=== PATIENT | male | born 1995 | race African-American/Black ===

== ENCOUNTER 2017-05-13 14:28 | Emergency (ER) | payer SELFPAY ==
[2017-05-13] MEDS ORDERED: KETOROLAC TROMETHAMINE 30 MG/1ML VIAL ONE (14:34)
--- NOTE | 2017-05-13 14:35 | ED Physician Documentation ---
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 Denies any precipitating factor noted. Denies any STD exposure and urethral dischage. Pain makes him nauseated but has not vomited. Patient states that his urine has been dark in color over the last 2 weeks. Has not noticed any blood in the urine. Patient has not had any dysuria, urinary frequency or urgency. Has had some trouble in intiating his urinary stream at times. No history of kidney stones. No history of testicular torsion.) - ROS CONST: no problems. denies: fever, chills - PAST HX Past History: none Other History: none Surgeries/Procedures: none Allergies/Adverse Reactions: Allergies Allergy/AdvReac Type Severity Reaction Status Date / Time No Known Allergies Allergy Verified 05/13/17 15:01 Home Medications: Ambulatory Orders Medication Instructions Recorded Azithromycin [Zithromax] 1,000 mg PO QD #6 tablet 05/13/17 - SOCIAL HX Smoking History: less than 1 pack/day (1/2 ppd) Alcohol Use: occasionally Drug Use: marijuana - FAMILY HX Family History: No - VITAL SIGNS Vital Signs: Vital Signs Temp Pulse Resp BP Pulse Ox 144/70 10/02/13 11:04 - REVIEWED ASSESSMENTS Nursing Assessment Reviewed: Yes Vitals Reviewed: Yes Progress - Progress Progress: 15:28 Patient states that he is still having some pain in the right testicle but better. Groin pain almost gone. 16:27 Patient had resurgence of pain, CT Scan of abd pelvic done. Normal. awaiting patient to give another UA. 17:18 Second shot has help, still is not able to void again. Urine got sent to [facility] before UA was done. 18:24 Patient able to void, UA was normal. Pain is much better but still present. Possible orchitis or testicular appendix. Will given antibiotics. ED Results Lab/Radiology - Radiology Radiology Impressions: Report Submission Date: May 13, 2017 4:20:00 PM CDT Patient Study Name: JAE JOHNSON Date: May 13, 2017 3:47:02 PM CDT Modality Type: CT\SR Gender: M Description: CT ABD & PELVIS W/O CO : 93 Institution: [facility] Physician: SANTIAGO SIMMS - ANTHONY CT of the abdomen and pelvis without contrast Clinical history: Right flank pain and right testicular pain since last night. Technique: CT of the abdomen and pelvis is performed without oral or intravenous administration of contrast. Sagittal and coronal reconstructions are performed by the technologist. Findings: Visualized lung bases are clear. Liver and spleen demonstrate normal attenuation without focal defect. The gallbladder is normally distended. There is no pancreatic or adrenal abnormality. The kidneys are normal size, shape and position. There is no evident renal or ureteral calculus and no hydronephrosis. Bladder is unremarkable. The appendix is visualized and is within normal limits. There is a trace amount of free fluid in the pelvis of uncertain etiology. Gas and stool are present in the colon. There is no small bowel or colonic wall thickening. Impression: 1. Small amount of free fluid in the pelvis of uncertain etiology. 2. No evident renal or ureteral calculus and no hydronephrosis. 3. Negative appendix. Electronically signed on May 13, 2017 4:20:00 PM CDT by: Earnest Alvarez General Adult Physical Exam - PHYSICAL EXAM GENERAL APPEARANCE: severe distress RESPIRATORY: no resp distress, chest non-tender, breath sounds normal. No: wheezes, rales, rhonchi CVS: reg rate & rhythm, heart sounds normal, equal pulses ABDOMEN: soft, no organomegaly, normal bowel sounds, no distension, tenderness BACK: CVA tenderness (R) (mild) SKIN: warm/dry, normal color EXTREMITIES: non-tender, normal range of motion NEURO: oriented X3, mood/affect nml, cognition normal Discharge Clincal Impression: Right testicular pain Prescriptions: Azithromycin [Zithromax] 1,000 mg PO QD #6 tablet Referrals: Primary Doctor,No [Primary Care Provider] - 2 Days Additional Instructions: Drink a lot of fluids. Wear some scrotal support. Take some Aleve 2 tablets twice a day. If the pain seems to be getting worse to see your primary care provider or return to the ED. Home Medications: Ambulatory Orders Azithromycin [Zithromax] 1,000 mg PO QD #6 tablet 05/13/17 Condition: Stable Disposition: 01 HOME, SELF-CARE Decision to Admit: NO Date of Decison to Admit: 05/13/17 Decision Time: 18:14 Physical Exam - Physical Exam General Appearance: WD/WN, severe distress Male Genital Exam: normal genitalia, no hernia, epididymal tenderness (right), testicular tenderness (R) Neurologic: normal mood/affect
[2017-05-13] MEDS: KETOROLAC TROMETHAMINE 30 MG/1ML VIAL IVP ONE (14:40)
[2017-05-13 14:56] LABS: EOSINOPHILS % 8.5 % (0.0-6.8); MEAN CORPUSCULAR HEMOGLOBIN 23.2 pg (28.0-34.0); MEAN CORPUSCULAR VOLUME 74.5 fl (80.0-100.0); MONOCYTES % 7.5 % (0.0-11.0); NEUTROPHILS # 1.1 # k/uL (1.4-7.7)
[2017-05-13 15:09] LABS: eGFR (African) > 60; eGFR (Non-African) > 60
[2017-05-13] MEDS: fentaNYL CITRATE/PF 100 MCG/ 2ML AMP IVP ONE ×2 (15:15→17:01)
[2017-05-13] MEDS ORDERED: 0.9 % SODIUM CHLORIDE 1,000 ML IV ONE (15:33)
[2017-05-13] MEDS: 0.9 % SODIUM CHLORIDE 500 ML IV ONE (15:40)
--- NOTE | 2017-05-13 17:40 | Diagnostic Imaging Report ---
SANTIAGO SIMMS~ [facility] [address] [facility] [address] [place], [place]. [address] ~ ~ ~ ~ Report Submission Date: May 13, 2017 4:20:00 PM CDT Patient ~ Study Name: JAE JOHNSON ~ Date: May 13, 2017 3:47:02 PM CDT ~ Modality Type: CT\SR Gender: M ~ Description: CT ABD & PELVIS W/O CO : 93 ~ Institution: [facility] Physician: SANTIAGO SIMMS ~ ~ ~ ~ CT of the abdomen and pelvis without contrast Clinical history: ~Right flank pain and right testicular pain since last night. Technique: ~CT of the abdomen and pelvis is performed without oral or intravenous administration of contrast. ~Sagittal and coronal reconstructions are performed by the technologist. Findings: ~Visualized lung bases are clear. ~Liver and spleen demonstrate normal attenuation without focal defect. ~The gallbladder is normally distended. ~There is no pancreatic or adrenal abnormality. ~The kidneys are normal size, shape and position. ~There is no evident renal or ureteral calculus and no hydronephrosis. ~Bladder is unremarkable. ~The appendix is visualized and is within normal limits. ~There is a trace amount of free fluid in the pelvis of uncertain etiology. ~Gas and stool are present in the colon. ~ There is no small bowel or colonic wall thickening. Impression: 1. ~Small amount of free fluid in the pelvis of uncertain etiology. 2. ~No evident renal or ureteral calculus and no hydronephrosis. 3. ~Negative appendix. ~ Electronically signed on May 13, 2017 4:20:00 PM CDT by: Earnest BAUTISTA
[2017-05-13] MEDS ORDERED: cefTRIAXone SODIUM 1 GM VIAL ONE (18:21)
[2017-05-13] MEDS ORDERED: 0.9 % SODIUM CHLORIDE 100 ML IV ONE (18:22)
[2017-05-13] MEDS: cefTRIAXone SODIUM 1 GM in 0.9 % SODIUM CHLORIDE 50 ML IV ONE (18:29)
[2017-05-13 19:03] VITALS: BP 128/84
[2017-05-15 07:26] LABS: APPEARANCE,URINE CLEAR (CLEAR); COLOR,URINE YELLOW (YELLOW); OCCULT BLOOD,URINE NEGATIVE (NEGATIVE); UROBILINOGEN URINE 0.2 Eu (0.2-1.0)
== END 2017-05-13 18:45 | disposition home or self-care (01) ==
LOC: ED 14:28
DX: N50.811 Right testicular pain (principal)
CPT/HCPCS: 74176; 80053; 85025; 87801; J0696; J1885; J3010; J7030; J7060; 81002; 96361; 96372; 96374; 96375; 99283; S1016

== ENCOUNTER 2017-11-14 09:50 | Emergency (ER) | payer SELFPAY ==
--- NOTE | 2017-11-14 10:20 | ED Physician Documentation ---
General Adult - HISTORIAN Historian: patient - HPI Stated Complaint: L sided pain Chief Complaint: Abdominal Pain (abd wall pain) Additional Information: 22yo male who was playing basketball 3 days ago and was hit in the left lower abd area with a shoulder. Shortly thereafter twisted his torso while playing and felt another sharp pain in the to abd wall area. He has had pain in the abd wall/LLQ area since that time. Has been able to urinate OK, no blood in urine noteed. BM have been normal with no blood. No nausea/vomiting/ diarrhea. Has tried OTC meds without improvement. Is having a lot of burning type pain with movement, harp in nature. If he gets into a certain position the pain does improve. Has some mild swelling to the abd wall area, no ecchymosis noted. Onset: days ago (3 days ago) Timing: still present, worse Severity: moderate - ROS CONST: no problems. denies: fever, chills EYES/ENT: none CVS/RESP: none GI/: abdominal pain. denies: problems urinating, vomiting, nausea, diarrhea - PAST HX Past History: none Other History: none Surgeries/Procedures: none Immunizations: referred to PCP Allergies/Adverse Reactions: Allergies Allergy/AdvReac Type Severity Reaction Status Date / Time No Known Allergies Allergy Verified 11/14/17 10:10 Home Medications: Ambulatory Orders Medication Instructions Recorded Tramadol HCl [Ultram] 50 mg PO Q4 PRN #30 tablet 11/21/17 - SOCIAL HX Smoking History: less than 1 pack/day (11/09 ppd) Alcohol Use: none Drug Use: marijuana (occasional) - FAMILY HX Family History: No - VITAL SIGNS Vital Signs: Vital Signs Temp Pulse Resp BP Pulse Ox 97.3 F L 61 19 95/80 99 11/14/17 10:05 11/14/17 10:05 11/14/17 10:05 11/14/17 10:05 11/14/17 10:05 - REVIEWED ASSESSMENTS Nursing Assessment Reviewed: Yes Vitals Reviewed: Yes General Adult Physical Exam - PHYSICAL EXAM GENERAL APPEARANCE: mild distress NECK: normal inspection, supple RESPIRATORY: no resp distress, chest non-tender, breath sounds normal. No: wheezes, rales, rhonchi CVS: reg rate & rhythm, heart sounds normal, equal pulses, no murmur ABDOMEN: soft, no organomegaly, normal bowel sounds, no abdominal bruit, no distension, tenderness (over LLQ area and lateral), guarding. No: mass, rebound BACK: normal inspection SKIN: warm/dry, normal color EXTREMITIES: non-tender NEURO: oriented X3, mood/affect nml, cognition normal Discharge Clincal Impression: Contusion Qualifiers: Encounter type: initial encounter Contusion area: abdominal wall Qualified Code (s): S30.1XXA - Contusion of abdominal wall, initial encounter Referrals: Primary Doctor,No [Primary Care Provider] - 2 Days Additional Instructions: Take some Aleve 220mg, 2 tablets twice a day as needed for pain. Use a warm/ cool compress to the abdominal wall area. Let the pain be your guide as far as starting to play basketball again. If you continue to have problems to follow- up with your local primary care provider. Condition: Stable Disposition: 01 HOME, SELF-CARE Decision to Admit: NO Date of Decison to Admit: 11/14/17 Decision Time: 13:41
[2017-11-14] MEDS ORDERED: KETOROLAC TROMETHAMINE 60 MG/2 ML VIAL IM ONE (10:28)
[2017-11-14] MEDS: KETOROLAC TROMETHAMINE 30 MG/1ML VIAL ONE (11:16)
[2017-11-14] MEDS: KETOROLAC TROMETHAMINE 30 MG/1ML VIAL IVP ONE (11:16)
[2017-11-14] MEDS ORDERED: fentaNYL CITRATE/PF 100 MCG/ 2ML AMP IVP ONE (12:20)
--- NOTE | 2017-11-14 13:29 | Diagnostic Imaging Report ---
SANTIAGO SIMMS [facility] [address] [facility] [address] [address] Report Submission Date: Nov 14, 2017 1:27:17 PM ELECTRICAL AND ELECTRONIC ASSEMBLER Patient Study Name: JAE JOHNSON Date: Nov 14, 2017 12:37:55 PM ELECTRICAL AND ELECTRONIC ASSEMBLER Modality Type: CT\SR Gender: M Description: CT ABD & PELVIS W/ CON : 93 Institution: [facility] Physician: SANTIAGO SIMMS Examination: CT Abdomen/pelvis History: Left abdominal discomfort Comparison exams: 13 May 2017 Technique: CT Abdomen/pelvis with IV protocol. Findings: Liver, spleen, adrenals, pancreas, kidneys and gallbladder are without gross irregularity. No abnormal enhancement. No gallstone. No suspicious renal calcifications. Ureters are nondilated in their course through the abdomen and pelvis. No central calcification. Pelvic phleboliths. Bladder margin is within normal limits. Abdominal aorta without aneurysm or peripheral atherosclerotic disease. Cardiac silhouette not enlarged. No pericardial effusion. No abnormal small bowel dilation. Significant stool within the large bowel limiting sensitivity. No mesenteric inflammatory changes or free fluid. Appendix appears to fill with contrast. Osseous structures within normal limits. Lung bases without infiltrate. No effusion. Impression: No abdominal mass or inflammatory process. No gallstone. No suspicious renal calcifications or abnormal ureteric dilation. Significant large bowel stool - constipation. No lung base consolidation or effusion. Electronically signed on Nov 14, 2017 1:27:17 PM ELECTRICAL AND ELECTRONIC ASSEMBLER by: Steve BAUTISTA
[2017-11-14 14:57] VITALS: BP 116/67
[2017-11-15 07:58] LABS: APPEARANCE,URINE CLEAR (CLEAR); COLOR,URINE YELLOW (YELLOW); OCCULT BLOOD,URINE NEGATIVE (NEGATIVE); UROBILINOGEN URINE 0.2 Eu (0.2-1.0)
== END 2017-11-14 13:46 | disposition home or self-care (01) ==
LOC: ED 09:50
DX: S30.1XXA Contusion of abdominal wall, initial encounter (principal); Y93.67 Activity, basketball; Y92.9 Unspecified place or not applicable
CPT/HCPCS: 74177; 81002; 96374; 99283; J1885; Q9966; Q9967; S1016

== ENCOUNTER 2017-11-21 11:12 | Emergency (ER) | payer SELFPAY ==
[2017-11-21 11:35] VITALS: BP 140/70
--- NOTE | 2017-11-21 11:45 | ED Physician Documentation ---
Upper Extremity Injury - HISTORIAN Historian: patient - HPI Stated Complaint: basketball injury to left elbow Chief Complaint: Upper Extremity Injury Front/Back of Body, Lg ([place]): 1 - right elbow Onset: yesterday (last night) Where: school Severity: moderate Context: fall (Patietn going up to block shot got clipped and feel on outstretched hadn and then elbow) Modifying Factors: pain on movement - ROS CONST: no problems. denies: fever, chills - PAST HX Past History: none, Rt handed Allergies/Adverse Reactions: Allergies Allergy/AdvReac Type Severity Reaction Status Date / Time No Known Allergies Allergy Verified 11/14/17 10:10 Home Medications: Ambulatory Orders Medication Instructions Recorded Tramadol HCl [Ultram] 50 mg PO Q4 PRN #30 tablet 11/21/17 - SOCIAL HX Smoking History: less than 1 pack/day (1/2 ppd) Alcohol Use: none Drug Use: marijuana - FAMILY HX Family History: no significant history - VITAL SIGNS Vital Signs: Vital Signs Temp Pulse Resp BP Pulse Ox 98.7 F 78 20 140/70 99 11/21/17 11:12 11/21/17 11:12 11/21/17 11:12 11/21/17 11:12 11/21/17 11:12 - REVIEWED ASSESSMENTS Nursing Assessment Reviewed: Yes Vitals Reviewed: Yes ED Results Lab/Radiology - Orders Orders: ED Orders Category Date Time Status Long Arm Splint 1T Care 11/21/17 12:35 Active Sling to Affected Extremity 1T Care 11/21/17 12:35 Active ELBOW 2 VIEWS [RAD] Stat Exams 11/21/17 Completed WRIST 3 VIEWS OR MORE [RAD] Stat Exams 11/21/17 Completed Ketorolac Tromethamine [Toradol] Med 11/21/17 11:50 Discontinued 60 mg IM NOW ONE Upper Extremity Injury Physic - Physical Exam General Appearance: alert, mild distress Hand: normal inspection, non-tender, no evidence of injury, normal ROM Wrist: normal inspection, no evidence of injury, limited ROM. No: normal ROM ( decrease due to pain), abrasions, bone tenderness, deformity, ecchymosis Elbow/Forearm: bone tenderness (over radial head), limited ROM, pain, soft tissue tenderness (over the elbow area, radial head area), swelling. No: deformity, ecchymosis Shoulder: normal inspection, non-tender, no evidence of injury, normal ROM Neuro/Vascular/Tendon: no vascular compromise, motor nml, sensation nml Skin: warm,dry Resp/CVS: chest non-tender, breath sounds nml, heart sounds nml, no resp. distress, lungs clear, reg. rate & rhythm Abdomen: non-tender Discharge Clincal Impression: Right radial head fracture Qualifiers: Encounter type: initial encounter Fracture type: closed Fracture alignment: nondisplaced Qualified Code(s): S52.124A - Nondisplaced fracture of head of right radius, initial encounter for closed fracture Prescriptions: Tramadol HCl [Ultram] 50 mg PO Q4 PRN #30 tablet PRN Reason: as needed for pain Referrals: Primary Doctor,No [Primary Care Provider] - 2 Days Additional Instructions: Keep you arm in the sling. Contact an orthopedic group for follow-up of your fracture. [facility] Take Tramadol as needed for pain. This may cause some drowsiness. Keep a cool compress on the elbow area. IF you have any further problems to return to the ED or see your primary care provider. Condition: Stable Disposition: 01 HOME, SELF-CARE Decision to Admit: NO Date of Decison to Admit: 11/21/17 Decision Time: 12:37
[2017-11-21] MEDS ORDERED: KETOROLAC TROMETHAMINE 60 MG/2 ML VIAL IM ONE (11:50)
--- NOTE | 2017-11-21 13:02 | Diagnostic Imaging Report ---
SANTIAGO SIMMS [facility] [address] [facility] [address] Report Submission Date: Nov 21, 2017 12:13:12 PM POURED CONCRETE WALL TECHNICIAN Patient Study Name: JAE JOHNSON Date: Nov 21, 2017 11:52:43 AM POURED CONCRETE WALL TECHNICIAN Modality Type: CR Gender: M Description: UPPER EXTREMITY : 93 Institution: [facility] Physician: SANTIAGO SIMMS Examination: Plain film wrist History: Wrist discomfort Comparison exams: None available Findings: 3 views the wrist demonstrate normal cortical margins. No fracture. No dislocation. No soft tissue abnormality. Impression: No acute osseous abnormality Electronically signed on Nov 21, 2017 12:13:12 PM POURED CONCRETE WALL TECHNICIAN by: Steve BAUTISTA
--- NOTE | 2017-11-21 13:03 | Diagnostic Imaging Report ---
SANTIAGO SIMMS [address] [facility] [address] [address] Report Submission Date: Nov 21, 2017 12:15:11 PM ELECTRICAL APPLIANCE MECHANIC Patient Study Name: JAE JOHNSON Date: Nov 21, 2017 11:57:43 AM ELECTRICAL APPLIANCE MECHANIC Modality Type: CR Gender: M Description: UPPER EXTREMITY : 93 Institution: Physician: SANTIAGO SIMMS Examination: Plain film elbow History: Injury Comparison exams: None provided Findings: 3 views of the elbow demonstrates lucency involving the radial head. Humerus and ulna appear to be intact. Anterior and posterior joint effusion. Impression: Radial head fracture. Joint effusion. Electronically signed on Nov 21, 2017 12:15:11 PM ELECTRICAL APPLIANCE MECHANIC by: Steve BAUTISTA
== END 2017-11-21 13:17 | disposition home or self-care (01) ==
LOC: ED 11:12
DX: S52.124A Nondisplaced fracture of head of right radius, initial encounter for closed fracture (principal); X58.XXXA Exposure to other specified factors, initial encounter; Y93.67 Activity, basketball
CPT/HCPCS: 73070; 73110; 99282

== ENCOUNTER 2018-08-15 03:03 | Emergency (ER) | payer SELFPAY ==
[2018-08-15 03:15] VITALS: BP 142/76
--- NOTE | 2018-08-15 03:21 | ED Physician Documentation ---
Sore Throat/Dental Pain - HPI Stated Complaint: Left upper dental pain Chief Complaint: Dental Pain Onset: days ago (14) Context: Dental Caries Associated Symptoms: denies: fever, chills, sore throat Worsened By: cold Further Comments: no - ROS CONST: denies: no problems CVS/RESP: denies: chest pain, shortness of breath GI/: denies: nausea MS/SKIN/LYMPH: denies: muscle aches NEURO/PSYCH: denies: headache - PAST HX Past History: denies: dental surgery Other History: denies: cardiac disease Allergies/Adverse Reactions: Allergies Allergy/AdvReac Type Severity Reaction Status Date / Time No Known Allergies Allergy Verified 08/15/18 03:12 Home Medications: Ambulatory Orders Medication Instructions Recorded Penicillin V Potassium [Pen V K] 500 mg PO Q8 #30 tablet 08/15/18 Tramadol HCl [Conzip] 50 mg PO Q8 PRN #15 [id number].[id number] 08/15/18 - SOCIAL HX Smoking History: cigarettes, greater than 1 pack/day Alcohol Use: occasionally Drug Use: marijuana (daily) - FAMILY HX Family History: No - VITAL SIGNS Vital Signs: Vital Signs Temp Pulse Resp BP Pulse Ox 98.8 F 100 H 20 142/76 98 08/15/18 03:05 08/15/18 03:05 08/15/18 03:05 08/15/18 03:05 08/15/18 03:05 - REVIEWED ASSESSMENTS Nursing Assessment Reviewed: Yes Vitals Reviewed: Yes Dental Pain Physical Exam - EXAM General Appearance: no acute distress, anxious Head/Neck: head nml inspection Eyes: PERRL. No: pain of sinuses Mouth/Throat: dental tenderness, widespread dental decay Ear/Nose: nml inspection Respiratory: no resp. distress, breath sounds nml CVS: reg. rate & rhythm, heart sounds nml Abdomen: soft, normal bowel sounds Extremities: non-tender Skin: warm/dry, normal color Neuro/Psych: anxiety Discharge Clincal Impression: Dental caries, Pain, dental Prescriptions: Penicillin V Potassium [Pen V K] 500 mg PO Q8 #30 tablet Tramadol HCl [Conzip] 50 mg PO Q8 PRN #15 cpbp.25.75 PRN Reason: Pain Referrals: Primary Doctor,No [Primary Care Provider] - 2 Days Condition: Good Disposition: HOME, SELF-CARE Decision to Admit: NO Date of Decison to Admit: 08/15/18 Decision Time: 03:23
[2018-08-15] MEDS: traMADol HCL 50 MG TABLET PO ONE (03:36)
== END 2018-08-15 03:40 | disposition home or self-care (01) ==
LOC: ED 03:03
DX: K02.9 Dental caries, unspecified (principal); K08.89 Other specified disorders of teeth and supporting structures
CPT/HCPCS: 99283